=== PATIENT | male | born 1975 | race Caucasian/White ===

== ENCOUNTER 2022-10-08 05:09 | Emergency (ER) | payer BC ==
[~2022-10-08] VITALS: Ht 177.8 cm; Wt 87.0 kg
[2022-10-08 05:18] VITALS: BP 159/95
[2022-10-08 11:55] LABS: BASOPHILS % 0.2 % (0.0-2.0); HEMATOCRIT. 44.9 % (42.0-52.0); HEMOGLOBIN. 15.2 g/dL (14.0-18.0); LYMPHOCYTES % 13.4 % (20.0-50.0); MEAN CORPUSCULAR HEMOGLOBIN 30.8 pg (28.0-32.0); MEAN CORPUSCULAR VOLUME 90.9 fL (80.0-94.0); MEAN PLATELET VOLUME 7.4 fl (7.4-10.4); MONOCYTES % 4.3 % (2.0-8.0); NEUTROPHILS % 82.1 % (40.0-76.0); PLATELET 356 x1000/uL (130-400); RED BLOOD CELL COUNT 4.94 mill/uL (4.7-6.1); RED CELL DISTRIBUTION WIDTH 13.9 % (11.6-14.6)
[2022-10-08 11:56] LABS: CHLORIDE 103 mEq/L (98-107)
[2022-10-08] MEDS ORDERED: BENZ200C52 MT (15:38)
[2022-10-08] MEDS ORDERED: IBUPROFEN 600MG TABLET PO ONE (15:45)
== END 2022-10-08 16:22 | disposition home or self-care (01) ==
LOC: ER 05:09
DX: R07.81 Pleurodynia (principal); E78.00 Pure hypercholesterolemia, unspecified; I10 Essential (primary) hypertension
CPT/HCPCS: 36415; 71045; 80053; 84484; 85025; 85379; 93005; 99285